=== PATIENT | female | born 1975 | race African-American/Black ===

== ENCOUNTER 2017-11-26 18:43 | Emergency (ER) | payer OTHER ==
[2017-11-26 19:35] LABS: #Basophils 0.1 thou/uL (0.0-0.2); #Eosinphils 0.2 thou/uL (0.0-0.7); #Monocytes 0.5 thou/uL (0.11-0.59); %Basophils 1.3 % (0.0-1.0); %Eosinophils 2.3 % (0.0-10.0); %Lymphocytes 44.8 % (21.0-51.0); %Monocytes 7.2 % (0.0-10.0); %Neutrophils 44.4 % (42.0-75.0); Mean Corpuscular HGB CONC 32.7 g/dL (32.0-36.0); Mean Corpuscular Hemoglobin 29.8 pg (27.0-31.0); Mean Platelet Volume 6.3 fL (7.4-10.4); Platelet Count 297 thou/uL (130-400); Red Blood Cell (RBC) Count 4.04 mill/uL (4.20-5.40); White Blood Cell (WBC) Count 6.8 thou/uL (4.8-10.8)
[2017-11-26 19:55] LABS: ALT (SGPT) 10 U/L (8-55); AST (SGOT) 14 U/L (5-34); Albumin 4.1 g/dL (3.5-5.0); Alkaline Phosphatase 51 U/L (40-150); Anion Gap 11 mmol/L (10-20); BUN (Urea Nitrogen) 13 mg/dL (7.0-18.7); Bilirubin, Total 0.8 mg/dL (0.2-1.2); CK (CPK) 82 U/L (29-168); Calc. Creatinine Clearance 0 mL/min (70-130); Calcium 9.1 mg/dL (7.8-10.44); Carbon Dioxide 22 mmol/L (22-29); Chloride 108 mmol/L (98-107); Estimated GFR-MDRD 75; Globulin 3.1 g/dL (2.4-3.5); Glucose 89 mg/dL (70-105); Potassium 3.7 mmol/L (3.5-5.1); Protein, Total 7.2 g/dL (6.0-8.3); Sodium 137 mmol/L (136-145)
[2017-11-26 19:58] LABS: CKMB 0.6 ng/mL (0-6.6); Troponin I Less than 0.010 ng/mL (< 0.028)
--- NOTE | 2017-11-26 20:18 | RAD ---
CHEST ONE VIEW 11/26/17 HISTORY: Cough and shortness of breath. COMPARISON: None. FINDINGS: The lungs are without focal air space consolidation, pneumothorax or effusion. The cardiac silhouette and mediastinal contours are within normal limits. IMPRESSION: No acute intrathoracic abnormality. POS: [facility]
--- NOTE | 2017-11-30 19:03 | EKG ---
Test Reason : Blood Pressure : / mmHG Vent. Rate : 093 BPM Atrial Rate : 093 BPM P-R Int : 152 ms QRS Dur : 078 ms QT Int : 372 ms P-R-T Axes : 054 031 012 degrees QTc Int : 462 ms Normal sinus rhythm Possible Left atrial enlargement ST abnormality, possible digitalis effect Abnormal ECG Confirmed by ALVERTO SPENCER, NINA ([id number]), business editor JUAN CARLOS TOLENTINO ([id number]) on 11/30/2017 7:02:28 PM Referred By: Confirmed By:NINA DEL TORO MD
== END 2017-11-26 20:45 | disposition home or self-care (01) ==
LOC: ERS 18:43
DX: J42 Unspecified chronic bronchitis (principal)
CPT/HCPCS: 36415; 71045; 80053; 82553; 83880; 84484; 85025; 85379; 93005

== ENCOUNTER 2018-07-04 18:12 | Emergency (ER) | payer OTHER ==
[2018-07-04] MEDS ORDERED: Ketorolac Tromethamine 30 MG/ML VIAL ONE (18:44)
[2018-07-04] MEDS ORDERED: Prochlorperazine 10 MG/2 ML VIAL ONE (18:44)
[2018-07-04] MEDS ORDERED: Ibuprofen 800 MG TAB ONE (20:03)
--- NOTE | 2018-07-04 21:13 | ULT ---
RIGHT LOWER EXTREMITY VENOUS DUPLEX EXAM: 07/04/18 HISTORY: Right lower extremity swelling and pain. Real time color doppler evaluation of the right lower extremity was performed from groin to calf. Thi s includes evaluation of common femoral, superficial and profunda femoral, saphenous, popliteal, and trifurcation veins. This shows patent deep venous system. There is normal compressibility and augment ation. IMPRESSION: No evidence of DVT of the right lower extremity. POS: [facility]
== END 2018-07-04 21:20 | disposition home or self-care (01) ==
LOC: SCSER 18:12
DX: S93.401A Sprain of unspecified ligament of right ankle, initial encounter (principal); W19.XXXA Unspecified fall, initial encounter
CPT/HCPCS: J0780; J1885

== ENCOUNTER 2018-07-11 08:26 | Outpatient (CLI) | payer OTHER | END 2018-07-11 08:27 | disposition home or self-care (01) | LOC: BICMAMMO 08:26 | PROVIDERS: ATTEND Family Medicine | DX: Z12.31 Encounter for screening mammogram for malignant neoplasm of breast (principal); Z80.3 Family history of malignant neoplasm of breast | CPT/HCPCS: 77063; 77067 ==

== ENCOUNTER 2018-11-07 06:55 | Outpatient (CLI) | payer OTHER ==
--- NOTE | 2018-11-07 16:01 | ULT ---
LIMITED SONOGRAPHIC EVALUATION LEFT AXILLA: 11/07/2018 HISTORY: Swelling. Palpable abnormality (lump). TECHNIQUE: A limited sonographic evaluation was obtained in the left axilla, in the region of palpable abnormali ty. FINDINGS: No cystic or solid lesion is identified. No enlarged lymph node is appreciated on this exam. No oth er findings. IMPRESSION: No sonographic findings are seen to correspond to the patient's palpable abnormality. There is no cy stic or solid lesion seen. Palpable abnormality should be managed clinically. Additional imaging ca n be performed if warranted. If warranted or palpable abnormality persists, CT scan thorax can be pe rformed for further evaluation of the left axilla. POS: [facility]
== END 2018-11-07 06:56 | disposition home or self-care (01) ==
LOC: ULT 06:55
PROVIDERS: ATTEND Family Medicine
DX: R22.32 Localized swelling, mass and lump, left upper limb (principal)
CPT/HCPCS: 36415; 76999; 80053; 80061; 80074; 83036; 84443; 85025; 86780; 87389

== ENCOUNTER 2022-07-20 10:13 | Outpatient (CLI) | payer BC | END 2022-07-20 10:14 | disposition home or self-care (01) | LOC: BICMAMMO 10:13 | PROVIDERS: ATTEND Family Medicine | DX: Z12.31 Encounter for screening mammogram for malignant neoplasm of breast (principal); Z98.890 Other specified postprocedural states; Z80.3 Family history of malignant neoplasm of breast | CPT/HCPCS: 77063; 77067 ==

== ENCOUNTER 2022-08-08 08:25 | Emergency (ER) | payer BC ==
[2022-08-08] MEDS ORDERED: Ketorolac Tromethamine 30 MG/ML VIAL ONE (08:48)
== END 2022-08-08 09:15 | disposition home or self-care (01) ==
LOC: ERS 08:25
DX: G56.31 Lesion of radial nerve, right upper limb (principal); R07.89 Other chest pain
CPT/HCPCS: 93005; 94760; 96374; J1885

== ENCOUNTER 2023-10-21 13:21 | Emergency (ER) | payer BC, OTHER ==
[2023-10-21] MEDS ORDERED: Ibuprofen 800 MG TAB ONE (14:00)
[2023-10-21] MEDS ORDERED: Bacitracin 1 PK ONE (14:08)
== END 2023-10-21 14:14 | disposition home or self-care (01) ==
LOC: ERS 13:21
DX: S60.141A Contusion of right ring finger with damage to nail, initial encounter (principal); W20.8XXA Other cause of strike by thrown, projected or falling object, initial encounter; Y99.0 Civilian activity done for income or pay

== ENCOUNTER 2024-07-28 12:52 | Outpatient (CLI) | payer BC | END 2024-07-28 12:53 | disposition home or self-care (01) | LOC: BICMAMMO 12:52 | PROVIDERS: ATTEND Family Medicine | DX: Z12.31 Encounter for screening mammogram for malignant neoplasm of breast (principal); Z80.3 Family history of malignant neoplasm of breast; Z98.890 Other specified postprocedural states | CPT/HCPCS: 77063; 77067 ==

== ENCOUNTER 2025-04-21 10:03 | Emergency (ER) | payer BC ==
[2025-04-21 10:56] LABS: #Basophils Less than 0.03 10x3/uL (0.0-0.2); #Eosinophils Less than 0.03 10x3/uL (0.0-0.7); #Monocytes 0.90 10x3/uL (0.11-0.59); #Neutrophils 14.97 10x3/uL (1.40-6.50); %Basophils 0.1 % (0.0-1.0); %Eosinophils 0.1 % (0.0-10.0); %Lymphocytes 5.3 % (21.0-51.0); %Monocytes 5.3 % (0.0-10.0); %Neutrophils 88.4 % (42.0-75.0); Hematocrit 34.8 % (36.0-47.0); Hemoglobin 11.1 g/dL (12.0-16.0); Mean Corpuscular Hemoglobin 28.7 pg (27.0-31.0); Mean Corpuscular Volume 89.9 fL (78.0-98.0); Platelet Count 268 10x3/uL (130-400); Red Blood Cell (RBC) Count 3.87 mill/uL (4.20-5.40); White Blood Cell (WBC) Count 16.92 10x3/uL (4.8-10.8)
[2025-04-21 11:37] LABS: ALT (SGPT) Less than 7 U/L (Less than 34); AST (SGOT) 24 U/L (11-34); Albumin 3.6 g/dL (3.1-4.5); Alkaline Phosphatase 64 U/L (40-110); Anion Gap 13 mmol/L (10-20); BUN (Urea Nitrogen) 10 mg/dL (7.0-18.7); Bilirubin, Total 1.3 mg/dL (0.3-1.2); Calc. Creatinine Clearance 0 mL/min (70-130); Calcium 8.9 mg/dL (7.8-10.44); Carbon Dioxide 24 mmol/L (22-29); Chloride 104 mmol/L (98-107); Globulin 3.9 g/dL (2.4-3.5); Glucose 95 mg/dL (70-105); Potassium 3.6 mmol/L (3.5-5.1); Sodium 137 mmol/L (136-145)
[2025-04-21] MEDS ORDERED: Dexamethasone 10 MG/ML VIAL ONE (11:48)
[2025-04-21] MEDS ORDERED: Ketorolac Tromethamine 30 MG (1 mL) VIAL ONE (11:48)
[2025-04-21 12:08] LABS: MONO NEGATIVE CONTROL ZONE White (Negative) (White); MONO POSITIVE CONTROL Pink Line (Positive) (PINK/RED); Mononucleosis NEGATIVE (NEGATIVE)
[2025-04-21 13:20] LABS: Bacteria/HPF 4+ HPF (None Seen); CAUTI Indications for Culture Pelvic or flank pain; Glucose, Urine (Dipstick) Normal (Negative); Leukocyte Negative Leu/uL (Negative); Protein, Urine (Dipstick) Negative (Neg-Trace); Specific Gravity, Urine 1.013 (1.002-1.036)
[2025-04-21 13:24] LABS: Urine Culture Reflex No No
== END 2025-04-21 15:34 | disposition home or self-care (01) ==
LOC: ERS 10:03
DX: J02.9 Acute pharyngitis, unspecified (principal)
CPT/HCPCS: 70491; 71045; 80053; 81001; 83605; 85025; 86308; 87040; 87081; 87086; 87428; 87430; 93005; 96374; 96375; J0295; J1100; J1885